=== PATIENT | male | born 1940 | race Caucasian/White ===

== ENCOUNTER → 2018-01-11 16:24 | Outpatient (CLI) | payer MEDICARE ==
[2018-01-11 17:19] LABS: APPEARANCE CLEAR (CLEAR); BILIRUBIN 2+ (NEGATIVE); COLOR YELLOW (YELLOW); GLUCOSE NEGATIVE (NEGATIVE); KETONE NEGATIVE (NEGATIVE); NITRITE NEGATIVE (NEGATIVE); PROTEIN 1+ mg/dL (NEGATIVE); SPECIFIC GRAVITY 1.015 (1.005-1.020)
[2018-01-11 17:21] LABS: EPITHELIAL CELLS 0-5 /hpf (0-5); WHITE CELLS - URINE 0-5 /hpf (0-5)
[2018-01-11 17:22] LABS: BACTERIA FEW /hpf (NONE SEEN)
== END | disposition home or self-care (01) ==
LOC: D.LABREF 16:24
PROVIDERS: Family Medicine Sports Medicine
DX: R31.9 Hematuria, unspecified (principal)